=== PATIENT | female | born 1980 | race Caucasian/White ===

== ENCOUNTER 2023-06-18 15:38 | Outpatient (REF) | payer MEDICAID, SELFPAY ==
[2023-06-18 19:24] LABS: HCT 41.1 % (36.0-46.0); HGB 13.7 g/dL (11.2-15.7); MCHC 33.3 % (32.0-36.0); MCV 90 fL (80-95); MPV 9.5 fL (8.0-11.0); Platelet Count 364 10^3/uL (130-400); RBC 4.57 10^6/uL (3.93-5.22); RDW 13.6 % (11.7-14.6); RDW-SD 44.9 fL; WBC 8.41 10^3/uL (4.4-10.8)
[2023-06-18 19:48] LABS: FREE T4 0.92 ng/dL (0.76-1.46); TSH 1.98 uIU/mL (0.36-3.74)
[2023-06-18 19:55] LABS: Hemoglobin A1C 5.8 % (<5.7)
[2023-06-18 20:39] LABS: Vitamin D 25 Total 31.8 ng/mL (30-100)
== END 2023-06-18 15:39 | disposition home or self-care (01) ==
LOC: NCHCN 15:38
PROVIDERS: Visit Provider Physician Assistant
DX: R53.83 Other fatigue (principal); R73.9 Hyperglycemia, unspecified
CPT/HCPCS: 82306; 85027; 83036; 83735; 84439; 84443

== ENCOUNTER 2024-02-11 22:03 | Outpatient (REF) | payer MEDICAID, SELFPAY ==
[2024-02-11 22:20] LABS: Anion Gap 5.4 mmol/L (3-11); BUN 11 mg/dL (7-18); CO2 27.6 mmol/L (21.0-32.0); CREATININE 0.7 mg/dL (0.55-1.02); Calcium 9.3 mg/dL (8.5-10.1); Chloride 103 mmol/L (98-107); Estimated GFR 108.62 (mL/min/1.73m2); Glucose 120 mg/dL (74-106); Potassium 4.3 mmol/L (3.5-5.1); Sodium 136 mmol/L (136-145)
== END 2024-02-11 22:04 | disposition home or self-care (01) ==
LOC: NCHCN 22:03
PROVIDERS: Visit Provider Physician Assistant
DX: R73.03 Prediabetes (principal); I10 Essential (primary) hypertension
CPT/HCPCS: 80048; 83036

== ENCOUNTER 2025-01-17 09:55 | Outpatient (CLI) | payer MEDICAID, SELFPAY ==
[2025-01-17 14:15] LABS: Hemoglobin A1C 6.0 % (<5.7)
[2025-01-17 14:27] LABS: Anion Gap 8.1 mmol/L (3-11); BUN 19 mg/dL (7-18); CO2 25.9 mmol/L (21.0-32.0); Calcium 8.9 mg/dL (8.5-10.1); Calculated LDL 121 mg/dL (<100); Chloride 106 mmol/L (98-107); Cholesterol 185 mg/dL (<200); Estimated GFR 112.04 (mL/min/1.73m2); Glucose 98 mg/dL (74-106); HDL Cholesterol 55 mg/dL (>or=50); Potassium 4.1 mmol/L (3.5-5.1); Sodium 140 mmol/L (136-145); Triglyceride 49 mg/dL (<150)
== END 2025-01-17 09:56 | disposition home or self-care (01) ==
LOC: LOS 09:55
PROVIDERS: PCP Physician Assistant; Visit Provider Physician Assistant
DX: R73.03 Prediabetes (principal); I10 Essential (primary) hypertension
CPT/HCPCS: 36415; 80048; 80061; 83036

== ENCOUNTER 2025-02-02 11:13 | Emergency (ER) | payer MEDICAID, SELFPAY ==
[2025-02-02] VITALS (20 sets, daily range): BP systolic 133–157; BP diastolic 68–87; PULSE 57–68; RESP 13–26; TEMP 36.3; O2SAT 95–100
--- NOTE | 2025-02-02 11:00 | RT.EKG_ITS ---
APPROVED REPORT Exam: Resting ECG Reason for Exam: chest pain Patient Location: E HR:61 bpm ECG Measurements Heart Rate 61 AXIS VT 160 P 36 QRSd 153 QRS -11 QT 440 T -10 QTc 444 Conclusion Sinus rhythm...normal P axis, V-rate 60- 99 Right bundle branch block...QRSd>120, terminal axis(90,270) Physician: no prior for comparison, inverted t waves in inferior leads. RBBB
--- NOTE | 2025-02-02 11:30 | DI.CT_ITS ---
Exam(s) CT THORAX ABD/PEL CTA EXAM: CT THORAX ABD/PEL CTA CLINICAL HISTORY: Stabbing chest pain to back, also RUQ pain vomit. TECHNIQUE: Imaging Protocol: Axial CT angiography was performed with multi- slice acquisition and multi-planar and/or 3D reconstructions. Lung Computer Aided Detection (CAD) was utilized. CONTRAST MATERIAL: Intravenous: Omnipaque 350 contrast volume:100 mL Oral: No COMPARISON: No exams were available for comparison FINDINGS: CHEST: Tracheobronchial tree: Patent where visualized. There is no evidence of bronchiectasis. Pulmonary parenchyma: There is poor inspiration with atelectasis. No focal consolidating infiltrates are present. There are no suspicious pulmonary nodules. No architectural distortion. Pulmonary Arteries: No evidence of filling defect to suggest pulmonary emboli. Mediastinum and Ambar: No dominant adenopathy or fluid collection. The esophagus is unremarkable. Visualized thyroid: Unremarkable. Pleura: No effusion or pneumothorax. Heart: The heart is not dilated. No coronary artery calcifications are seen. No pericardial effusion. Aorta: Thoracic aorta non-dilated. There is no evidence of dissection. Soft Tissues: Unremarkable. Bones: Within normal limits for the patient's age. ABDOMEN AND PELVIS: Abdomen: Celiac axis/mesenteric arteries: No evidence of occlusion or significant stenosis. Renal Arteries: No evidence of occlusion or significant stenosis. Aorta: No evidence of occlusion or significant stenosis. No aneurysm or dissection. Pelvis: Iliac Arteries: No evidence of occlusion or significant stenosis. Common Femoral Arteries: No evidence of occlusion or significant stenosis. ABDOMEN: Liver: Normal density. No measurable mass. Portal, superior mesenteric and splenic veins: Unremarkable. Gallbladder and Biliary Tract: There are faint densities seen in the gallbladder suspicious for gallstones. There is no biliary ductal dilatation. Pancreas: Normal density, no abnormal calcifications or inflammatory process. Spleen: Normal. Adrenals: No masses seen. Kidneys: Normal size, contour and axis. No radiodense stones or obstructive uropathy. No masses seen. Note is made of a retroaortic left renal vein. Bowel: There is colonic diverticulosis without evidence of acute diverticulitis. Appendix is unremarkable. There is no evidence of bowel wall thickening or obstruction. Peritoneal Cavity: No ascites, collection or mesenteric inflammatory response. No free air. Lymph Nodes: Within normal limits. Bones: Within normal limits for the patient's age. Soft Tissues: Unremarkable. PELVIS: Bladder: Symmetric distention, no gross wall thickening. Reproductive Organs: There is a 2.5 cm right ovarian cyst which is likely physiologic. Lymph Nodes: Within normal limits. Bones: Within normal limits for the patient's age. IMPRESSION: 1. Densities seen within the gallbladder likely reflecting gallstones. There is no biliary ductal dilatation. 2. Colonic diverticulosis without evidence of acute diverticulitis. 3. No acute abdominal or pelvic process. 4. There is no evidence of a pulmonary embolism, thoracic aortic dissection or aneurysm. 5. No acute pulmonary process. 6. There is no evidence of an abdominal aortic aneurysm or dissection. RADIATION DOSE DELIVERED: 2,062.53mGy.cm Total DLP DATA REPOSITORY: All CT scans at this facility are submitted to the National Radiology Data Registry (NRDR) Dose Index Registry (DIR) with the [employer] (A[employer]). RADIATION OPTIMIZATION: All CT scans at this facility use at least one of these dose optimization techniques: automated exposure control; mA and/or kV adjustment per patient size (includes targeted exams where dose is matched to clinical indication); or iterative reconstruction.
[2025-02-02 11:48] LABS: Abs Immature Grans 0.04 10^3/uL (0.0-0.06); HCT 37.3 % (36.0-46.0); HGB 12.1 g/dL (11.2-15.7); Immature Grans % 0.5 %; MCH 29.0 pg (27.0-33.0); MCHC 32.4 % (32.0-36.0); MCV 89 fL (80-95); MPV 9.0 fL (8.0-11.0); Platelet Count 287 10^3/uL (130-400); RBC 4.17 10^6/uL (3.93-5.22); RDW 14.1 % (11.7-14.6); RDW-SD 46.5 fL; WBC 8.54 10^3/uL (4.4-10.8)
--- NOTE | 2025-02-02 11:50 | W.ED.GENAD ---
Discharge Plan Disposition Patient Disposition: Home Condition: Good Discharge Details Clinical Impression: Chest discomfort, Transaminitis, Gallstones Primary Care Provider: Mark Wallace ED Provider: Jose J Jimenez Home Meds and New Rx's Prescriptions: No Action valsartan 160 mg tablet Patient Comments: TAKE ONE TABLET BY MOUTH EVERY DAY escitalopram oxalate 10 mg tablet Patient Comments: TAKE ONE TABLET BY MOUTH EVERY DAY WITH A 5MG TABLET TO TOTAL 15MG Discharge Instructions Instructions: Gallbladder Diet, Chest Pain, Adult ED Additional Instructions: At this time your workup has returned reassuring. I am concerned that your symptoms may be from your gallstones causing spasm and pain, potential esophageal spasm, or another [id number]-[id number] etiology. However, there are a few things that need follow-up. #1 your liver numbers were elevated. This may be combination of diet, alcohol intake, infection or genetics. We have sent a test for hepatitis, please follow-up with your primary care provider in regard to this for the results. Please avoid any alcohol or acetaminophen. #2 you do have gallstones in your gallbladder which I suspect are a component of your symptoms today. Please stick with a fat-free dairy free diet. Focus on a high-fiber diet. If your symptoms return or persist you may require further discussion with a surgeon to discuss potential removal of your gallbladder. #3 while your cardiac numbers were normal, there were a few abnormalities noted on your EKG. It is unclear if these are new or old. Please follow-up closely with your primary care provider for a repeat EKG and potential discussion of outpatient stress testing. If you notice any worsening of your symptoms, or any new symptoms such as vomiting, diarrhea, fever, chills, shortness of breath, chest pain, numbness, weakness, or fainting , please return immediately to the emergency department for reevaluation. Please follow up with your primary care provider as soon as possible for reassessment and reevaluation. As always, it was a pleasure participating in your medical care today. Referrals: Mark Wallace [Primary Care Provider, Medicine] [facility] General Date/Time Provider Initiated Documentation: 02/02/25 11:31. HPI Narrative: This is a 44-year-old female with a past medical history of hypertension, borderline diabetes, depression, previous tobacco use having quit 3 years ago who presents today for evaluation of chest pain. Patient states that she had half a cup of coffee this morning, and then while drinking her second half a cup of coffee if she felt a bubble like sensation in her chest described as stabbing chest pain that then radiated and stabbed directly towards her back. It caused her to double over, and she became near syncopal with lightheadedness sweatiness and nearly passed out. She had a single episode of vomiting, and pain persisted. EMS was called. Pain continued on their arrival and she was given nitroglycerin and a 325 aspirin. This did not improve her symptoms much at all. By the time the patient arrived in the ED pain had somewhat improved from at 10 to mid 2-5, however she exclaims that there is still oscillation of the pain back to the peak. She denies any lower abdominal pain. She denies any hematemesis. No cough or fever or chills. Questionable mild pleuritic component. She denies any falls or trauma. No history of cardiac disease for herself or her family. No other complaints at this time. She denies any arm or neck pain. No tingling or numbness. Related Data Home Medications ?Medication ?Instructions ?Recorded ?Confirmed escitalopram oxalate 10 mg tablet mg 02/02/25 valsartan 160 mg tablet mg 02/02/25 Allergies Allergy/AdvReac Type Severity Reaction Status Date / Time shellfish derived Allergy Anaphylaxis Verified 02/02/25 11:28 General Stated Complaint: Chest Pain SCOTT: 3 Exam Narrative Exam Narrative: 1.Const: Well-nourished, Well-developed, appearing stated age 2.Eyes: PERRL, no conjunctival injection, and symmetrical lids. 3.ENT: Atraumatic external nose and ears. Moist MM. Neck: Symmetric, trachea midline, No thyromegaly. 4.CVS: +S1/S2, Peripheral pulses 2+ and equal in all extremities. Brisk capillary refill in all extremities. 5.RESP: Unlabored respiratory effort. Clear to auscultation bilaterally. No wheezes rales or rhonchi 6.GI: Soft, mild tenderness on palpation of the epigastrium, as well as right upper quadrant. On deep palpation of the right upper quadrant she has radiation of her pain to the mid sternal region. No lower abdominal pain 7.MSK: Normocephalic/Atraumatic, Extremities w/o deformity or ttp No cyanosis or clubbing, Normal movement of all extremities 8.Skin: Warm, Dry. No rashes or lesions. 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 Sensation grossly intact, no focal neurologic deficits. 10.Psych: (AAO) x3. Appropriate mood and affect Course Vital Signs Vital signs: Vital Signs Temperature 36.3 C L 02/02/25 11:16 Pulse 61 02/02/25 11:16 Respiratory Rate 18 02/02/25 11:16 Temperature 36.3 C L 02/02/25 11:16 Pulse 61 02/02/25 11:23 Respiratory Rate 18 02/02/25 11:23 Respiratory Effort Normal 02/02/25 11:24 Respiratory Depth Normal 02/02/25 11:24 Blood Pressure 133/68 02/02/25 11:23 Blood Pressure Mean 89 02/02/25 11:23 Pulse Oximetry 100 02/02/25 11:23 Oxygen Delivery Method Room Air 02/02/25 11:23 Oxygen Flow Rate 0 02/02/25 11:23 Pain Level 3 02/02/25 11:16 Lab/Test Results Lab/Test Results: Laboratory Tests Range/Units 02/02/25 11:25 WBC (4.4-10.8) 10^3/uL 8.54 RBC (3.93-5.22) 10^6/uL 4.17 Hgb (11.2-15.7) g/dL 12.1 Hct (36.0-46.0) % 37.3 MCV (80-95) fL 89 MCH (27.0-33.0) pg 29.0 MCHC (32.0-36.0) % 32.4 RDW (11.7-14.6) % 14.1 Plt Count (130-400) 10^3/uL 287 MPV (8.0-11.0) fL 9.0 Immature Gran % % 0.5 Neutrophils % % 72.8 Lymphocytes % % 20.6 Monocytes % % 4.6 Eosinophils % % 1.3 Basophils % % 0.2 Nucleated RBC % (0.0-0.3) % 0.0 Absolute Neutrophils (1.2-6.7) 10^3/uL 6.22 Absolute Lymphocytes (1.2-3.4) 10^3/uL 1.76 Absolute Monocytes (0.1-0.8) 10^3/uL 0.39 Absolute Eosinophils (0.0-0.7) 10^3/uL 0.11 Absolute Basophils (0.0-0.2) 10^3/uL 0.02 Medical Decision Making This is a 44-year-old female with a past medical history of hypertension, borderline diabetes, depression, previous tobacco use having quit 3 years ago who presents today for evaluation of chest pain. Patient states that she had half a cup of coffee this morning, and then while drinking her second half a cup of coffee if she felt a bubble like sensation in her chest described as stabbing chest pain that then radiated and stabbed directly towards her back. It caused her to double over, and she became near syncopal with lightheadedness sweatiness and nearly passed out. She had a single episode of vomiting, and pain persisted. EMS was called. Pain continued on their arrival and she was given nitroglycerin and a 325 aspirin. This did not improve her symptoms much at all. By the time the patient arrived in the ED pain had somewhat improved from at 10 to mid 2-5, however she exclaims that there is still oscillation of the pain back to the peak. She denies any lower abdominal pain. She denies any hematemesis. No cough or fever or chills. Questionable mild pleuritic component. She denies any falls or trauma. No history of cardiac disease for herself or her family. No other complaints at this time. She denies any arm or neck pain. No tingling or numbness. Exam demonstrates well-appearing female, tenderness in the epigastrium, as well as when palpating the right upper quadrant she has notable radiation to her sternum. No other abnormalities on exam, vital signs stable. EKG shows inferior T wave inversions, but no evidence of STEMI. Differential includes cardiac ACS, pancreatitis, less likely cholecystitis or biliary colic. Dissection less likely given normal pulses throughout and stable vital signs however remains on the differential. We will get CT imaging of the chest and abdomen, treat her pain, give GI cocktail, monitor closely and reassess. 2:15 PM Laboratory workup has returned, no white count bandemia or left shift. Serial troponins are normal, electrolytes normal, bilirubin normal. AST and ALT are slightly elevated at 109 and 72 respectively, however that is in the setting of a normal total bilirubin at 0.7. Lipase is normal. Urinalysis shows no evidence of infection or blood. On reassessment patient is feeling much better. CT scan shows evidence of multiple tiny gallstones, but there is no evidence of biliary ductal dilatation or other acute abnormality to suggest choledocholithiasis or ascending cholangitis. Patient does admit that she has been drinking alcohol every night on a nightly basis for the last couple weeks, which is a change for her. She does not use IV drugs, or have any history of hepatitis otherwise. We will send a hepatitis panel, and recommend against alcohol intake for the time being. We will recommend close follow-up with her primary care provider for follow-up on the hepatitis panel. As the serial troponins are normal, and her chest pain is notably improved/resolved, I do not see evidence to suggest ACS. However because of her age and risk factors I do feel that outpatient follow-up with her primary care provider for discussion of nonemergent stress testing is certainly reasonable. Additionally it would be beneficial to have a repeat EKG in the next few weeks for comparison as her current EKG has some atypical components, but there is no prior for comparison. Additionally we have recommended dietary changes for the patient for the gallstones as this or an esophageal spasm was likely the component or cause of her symptomatology. We did discuss that if her symptoms do not improve or return she may require further outpatient discussion with surgery for potential surgical discussions. Patient otherwise stable. She will be discharged home. Discussed plan with family. I have extensively reviewed the treatment plan and discharge instructions with the patient and their family. I have addressed all patient concerns at this time. The patient and family was made aware of what symptoms to monitor for that would warrant a return to the emergency department. Discussed the plan with the patient and family, they demonstrate verbal understanding and agreement with our assessment and plan at this time. The documentation in this chart was dictated using [employer] dictation software. Please excuse any dictation errors. FINDINGS: CHEST: Tracheobronchial tree: Patent where visualized. There is no evidence of bronchiectasis. Pulmonary parenchyma: There is poor inspiration with atelectasis. No focal consolidating infiltrates are present. There are no suspicious pulmonary nodules. No architectural distortion. Pulmonary Arteries: No evidence of filling defect to suggest pulmonary emboli. Mediastinum and Ambar: No dominant adenopathy or fluid collection. The esophagus is unremarkable. Visualized thyroid: Unremarkable. Pleura: No effusion or pneumothorax. Heart: The heart is not dilated. No coronary artery calcifications are seen. No pericardial effusion. Aorta: Thoracic aorta non-dilated. There is no evidence of dissection. Soft Tissues: Unremarkable. Bones: Within normal limits for the patient's age. ABDOMEN AND PELVIS: Abdomen: Celiac axis/mesenteric arteries: No evidence of occlusion or significant stenosis. Renal Arteries: No evidence of occlusion or significant stenosis. Aorta: No evidence of occlusion or significant stenosis. No aneurysm or dissection. Pelvis: Iliac Arteries: No evidence of occlusion or significant stenosis. Common Femoral Arteries: No evidence of occlusion or significant stenosis. ABDOMEN: Liver: Normal density. No measurable mass. Portal, superior mesenteric and splenic veins: Unremarkable. Gallbladder and Biliary Tract: There are faint densities seen in the gallbladder suspicious for gallstones. There is no biliary ductal dilatation. Pancreas: Normal density, no abnormal calcifications or inflammatory process. Spleen: Normal. Adrenals: No masses seen. Kidneys: Normal size, contour and axis. No radiodense stones or obstructive uropathy. No masses seen. Note is made of a retroaortic left renal vein. Bowel: There is colonic diverticulosis without evidence of acute diverticulitis. Appendix is unremarkable. There is no evidence of bowel wall thickening or obstruction. Peritoneal Cavity: No ascites, collection or mesenteric inflammatory response. No free air. Lymph Nodes: Within normal limits. Bones: Within normal limits for the patient's age. Soft Tissues: Unremarkable. PELVIS: Bladder: Symmetric distention, no gross wall thickening. Reproductive Organs: There is a 2.5 cm right ovarian cyst which is likely physiologic. Lymph Nodes: Within normal limits. Bones: Within normal limits for the patient's age. IMPRESSION: 1. Densities seen within the gallbladder likely reflecting gallstones. There is no biliary ductal dilatation. 2. Colonic diverticulosis without evidence of acute diverticulitis. 3. No acute abdominal or pelvic process. 4. There is no evidence of a pulmonary embolism, thoracic aortic dissection or aneurysm. 5. No acute pulmonary process. 6. There is no evidence of an abdominal aortic aneurysm or dissection PFSH All Active Problems (Updated 02/02/25 @ 14:08 by Jose J Jimenez DO) Gallstones (Acute) Transaminitis (Acute) Chest discomfort (Acute) Social History Smoking/Tobacco Use Status: Never Smoking risk assessment performed?: Yes Alcohol Intake: current Alcohol Intake frequency: holidays/special occasions only Substance use type: does not use Housing: apartment Do you feel safe at home: Yes Do you feel safe in your relationship?: Yes
[2025-02-02] MEDS: Ketorolac 15 MG/ML VIAL IVP (11:52)
[2025-02-02] MEDS: Lactated Ringers 1,000 ML 1000 ML IV (11:52)
[2025-02-02] MEDS: Mylanta Suspension 30 ML CUP PO (11:52)
[2025-02-02] MEDS: Ondansetron 4 MG/2 ML VIAL IVP (11:52)
[2025-02-02 11:59] LABS: INR 1.0 (0.9-1.1); PTT Activated 29.1 sec (20.6-30.2); Prothrombin Time 9.7 sec (9.1-11.1)
[2025-02-02 12:02] LABS: ALT 72 U/L (14-59); AST 109 U/L (15-37); Albumin 3.3 g/dL (3.4-5.0); Alkaline Phosphatase 111 U/L (46-116); Anion Gap 7.5 mmol/L (3-11); BUN 15 mg/dL (7-18); Bilirubin, Total 0.7 mg/dL (0.2-1.0); CO2 26.5 mmol/L (21.0-32.0); Calcium 8.9 mg/dL (8.5-10.1); Chloride 104 mmol/L (98-107); Estimated GFR 107.95 (mL/min/1.73m2); Glucose 120 mg/dL (74-106); Lipase 27 U/L (<78); Potassium 3.8 mmol/L (3.5-5.1); Sodium 138 mmol/L (136-145); Total Protein 6.8 g/dL (6.4-8.2); Troponin I 7 ng/L (<or=51)
[2025-02-02 12:09] LABS: Glucose Negative (Negative)
[2025-02-02] MEDS: Normal Saline - Diluent 50 ML VIAL IJ (12:32)
[2025-02-02] MEDS: Omnipaque 350 MG/ML 100 ML BTL IJ (12:32)
[2025-02-02] MEDS: Normal Saline Flush 10 ML SYR IVP (12:33)
[2025-02-02 13:09] LABS: Troponin I 7 ng/L (<or=51)
[2025-02-03 10:01] LABS: Hepatitis A Antibody IgM Negative (Negative); Hepatitis C Ab w Rflx HCV PCR Negative (Negative)
== END 2025-02-02 14:12 | disposition home or self-care (01) ==
PROVIDERS: Emergency Provider Student in an Organized Health Care Education/Training Program; PCP Physician Assistant
DX: K80.20 Calculus of gallbladder without cholecystitis without obstruction (principal); R74.01 Elevation of levels of liver transaminase levels; R07.89 Other chest pain
CPT/HCPCS: 36415; 71275; 80053; 83690; 86704; 86709; 86803; 87340; 93005; 96361; 96374; 96375; 99285; 74174; 81003; 84484; 85025; 85610; 85730; 93010; 99284; J1885; J2405; J3490

== ENCOUNTER 2025-02-08 18:01 | Outpatient (REF) | payer MEDICAID, SELFPAY ==
[2025-02-08 16:29] LABS: ALT 157 U/L (14-59); AST 30 U/L (15-37); Albumin 3.2 g/dL (3.4-5.0); Alkaline Phosphatase 107 U/L (46-116); Anion Gap 7.5 mmol/L (3-11); BUN 14 mg/dL (7-18); Bilirubin, Total 0.4 mg/dL (0.2-1.0); CO2 27.5 mmol/L (21.0-32.0); Calcium 9.1 mg/dL (8.5-10.1); Chloride 105 mmol/L (98-107); Estimated GFR 112.04 (mL/min/1.73m2); Glucose 89 mg/dL (74-106); Potassium 4.4 mmol/L (3.5-5.1); Sodium 140 mmol/L (136-145); Total Protein 6.2 g/dL (6.4-8.2)
== END 2025-02-08 18:02 | disposition home or self-care (01) ==
LOC: NCHCN 18:01
PROVIDERS: PCP Physician Assistant; Visit Provider Physician Assistant
DX: R10.9 Unspecified abdominal pain (principal)
CPT/HCPCS: 80053